=== PATIENT | female | born 2000 | race Caucasian/White ===

== ENCOUNTER 2024-11-20 06:05 | Inpatient (IN) | payer OTHER ==
[~2024-11-20] VITALS: Ht 154.9 cm; Wt 74.4 kg
[~2024-11-20 06:05] MED LIST: CALCIUM CARBONATE 500 MG CHEW PO PRN; LACTATED RINGER'S 1,000 ML IV SCH; MAGNESIUM HYDROXIDE/AL HYDROX 30 ML CUP PO PRN; miSOPROStoL 25 MCG TAB PV SCH
[2024-11-20] MEDS ORDERED: LACTATED RINGER'S 1,000 ML IV PRN (06:30)
[2024-11-20] MEDS ORDERED: OXYTOCIN/0.9 % SODIUM CHLORIDE 30 UNITS/500 ML BAG IV SCH (06:30)
[2024-11-20 06:47] LABS: HEMATOCRIT 36.9 % (35.0-50.0); HEMOGLOBIN 12.9 g/dL (12.0-18.0); MCH 31.7 (27-36); MCHC 35.1 g/dl (30-36); MCV 90.3 fl (81-99); RBC 4.09 M/ul (4.3-5.7); RDW 12.9 (10.5-15.0)
[2024-11-20 07:09] VITALS: BP 118/68
[2024-11-20 07:31] LABS: ABO O; ANTIBODY SCREEN NEGATIVE; RH NEGATIVE
[2024-11-20 07:57] LABS: AMPHETAMINES, URINE NEGATIVE (NEGATIVE); BARBITURATES, URINE NEGATIVE (NEGATIVE); BENZODIAZEPINE, URINE NEGATIVE (NEGATIVE); COCAINE, URINE NEGATIVE (NEGATIVE); ECSTASY, URINE NEGATIVE (NEGATIVE); FENTANYL, URINE NEGATIVE (NEGATIVE); METHADONE, URINE NEGATIVE (NEGATIVE); OPIATES, URINE NEGATIVE (NEGATIVE); OXYCODONE, URINE NEGATIVE (NEGATIVE); PHENCYCLIDINE, URINE NEGATIVE (NEGATIVE)
[2024-11-20 08:50] LABS: BUPRENORPHINE, URINE NEGATIVE (NEGATIVE); CANNABINOID, URINE NEGATIVE (NEGATIVE)
[2024-11-20] MEDS ORDERED: ROPIVACAINE 0.2% 200 ML BAG ONE (15:55)
[2024-11-20] MEDS ORDERED: LACTATED RINGER'S 500 ML IV PRN (17:15)
[2024-11-20] MEDS ORDERED: LACTATED RINGER'S 2,000 ML IV ONE (17:15)
[2024-11-20] MEDS ORDERED: ePHEDrine sulfate 5 MG/ML SYRINGE IV PRN (17:15)
[2024-11-20] MEDS ORDERED: ROPIVACAINE 0.2% 200 ML BAG EPIDURAL SCH (17:15)
[2024-11-20] MEDS ORDERED: dexmedeTOMIDine HCl 200 MCG/2 ML VIAL ONE ×2 (17:24→22:19)
--- NOTE | 2024-11-20 17:36 | PR ---
[facility] [address] [place], [place] [address] Signed Progress Notes IP Datetime Report Generated by [employer]: 11/20/2024 17:36 PROGRESS NOTES: [id number] Impression: Normal Progression of Labor; Reassuring Heart Rate Procedures: Artificial ROM; Sterile Vag Exam Plan: Continue Present Management Informed Consent Obtain: Vaginal Delivery; Risks, Benefits and Alternatives Discussed VITAL SIGNS: [id number] Vital Signs: Reviewed; Within Normal Limits EXAM: [id number] Dilatation: 2.0 Effacement: 90 Station: -2 Contractions: q 2-3 minutes MEMBRANES: [id number] Comments: Care assumed for patient. Doing well. Cat 1 tracing and comfortable w/ epidural. AROM discussed and verbal consent obtained. AROM performed for moderate amount of clear fluid. Continue to monitor FETUS A: [id number] FHR Baseline: 150 Variability: Moderate 6-25bpm Accelerations: 15X15 Decelerations: None FHR Category: Category I Presentation: Vertex Comments on Fetus A: REassuring FETUS B: [id number] Signing Physician: Trenton Alexandre DO Copies: ~ *Electronically Signed* 11/20/24 1732 TRENTON ALEXANDRE (CORY) DO PATIENT NAME: RANDY POLK PROGRESS NOTE DATE OF : 99 PHYSICIAN: TRENTON ALEXANDRE (JD) DO RPT #: [id number] REPORT IS CONFIDENTIAL AND NOT TO BE RELEASED WITHOUT AUTHORIZATION
[2024-11-20] MEDS ORDERED: ondansetron HCL 4 MG/2 ML VIAL IV PRN (22:00)
--- NOTE | 2024-11-20 22:07 | PR ---
[facility] [address] [place], [place] [address] Signed Progress Notes IP Datetime Report Generated by CPN: 11/20/2024 22:07 PROGRESS NOTES: [id number] Impression: Normal Progression of Labor; Reassuring Heart Rate Procedures: Sterile Vag Exam Other Procedures: Exam per RN Plan: Continue Present Management Other Plans: Anesthesia at bedside for epidural bolus Informed Consent Obtain: Vaginal Delivery VITAL SIGNS: [id number] Vital Signs: Reviewed; Within Normal Limits EXAM: [id number] Dilatation: 4.5 Effacement: 90 Station: -1 Contractions: q 2-3 min MEMBRANES: [id number] Comments: Pt seen and evaluated. Tearful w/ contractions. Anesthesia at bedside for epidural bolus. Reviewed labor progress and will continue expectant management. All questions answered. FETUS A: [id number] FHR Baseline: 150 Variability: Moderate 6-25bpm Accelerations: 15X15 Decelerations: None FHR Category: Category I Presentation: Vertex Comments on Fetus A: REassuring FETUS B: [id number] Signing Physician: Trenton Alexandre DO Copies: ~ *Electronically Signed* 11/20/24 9079 TRENTON ALEXANDRE (CORY) DO PATIENT NAME: RANDY POLK PROGRESS NOTE DATE OF : 99 PHYSICIAN: TRENTON ALEXANDRE (JD) DO RPT #: [id number] REPORT IS CONFIDENTIAL AND NOT TO BE RELEASED WITHOUT AUTHORIZATION
[2024-11-20] MEDS ORDERED: LIDOCAINE HCL 2% 5 ML SDV ONE (22:20)
--- NOTE | 2024-11-21 00:35 | PR ---
[facility] [address] [place], [place] [address] Signed Progress Notes IP Datetime Report Generated by [employer]: 11/21/2024 00:34 PROGRESS NOTES: [id number] Impression: Normal Progression of Labor; Reassuring Heart Rate Procedures: Sterile Vag Exam Other Procedures: Exam per RN Plan: Continue Present Management; Anticipate Vaginal Delivery Other Plans: Anesthesia at bedside for epidural bolus Informed Consent Obtain: Vaginal Delivery VITAL SIGNS: [id number] Vital Signs: Reviewed; Within Normal Limits EXAM: [id number] Dilatation: 10.0 Effacement: 90 Station: 0 Contractions: q 1-2 min MEMBRANES: [id number] Comments: Pt complete and c/o urge to push. Good pushing effort. Anticipate soon. Reviewed adequate pelvis and EFW. FETUS A: [id number] FHR Baseline: 150 Variability: Moderate 6-25bpm Accelerations: 15X15 Decelerations: None FHR Category: Category I Presentation: Vertex Comments on Fetus A: REassuring FETUS B: [id number] Signing Physician: Trenton Alexandre DO Copies: ~ *Electronically Signed* 11/21/24 0034 TRENTON ALEXANDRE (CORY) DO PATIENT NAME: RANDY POLK PROGRESS NOTE DATE OF : 99 PHYSICIAN: TRENTON ALEXANDRE (JD) DO RPT #: [id number] REPORT IS CONFIDENTIAL AND NOT TO BE RELEASED WITHOUT AUTHORIZATION
[2024-11-21] MEDS ORDERED: ACETAMINOPHEN 325 MG TAB PO PRN (01:45)
[2024-11-21] MEDS ORDERED: OXYTOCIN/0.9 % SODIUM CHLORIDE 500 ML IV SCH (01:45)
[2024-11-21] MEDS ORDERED: WITCH HAZEL/GLYCERIN 1 EA PAD TOP PRN (01:45)
[2024-11-21] MEDS ORDERED: BENZOCAINE 60 ML AEROSOL TOP PRN (01:45)
[2024-11-21] MEDS ORDERED: HYDROCORTISONE ACETATE 25 MG SUPP PR PRN (01:45)
[2024-11-21] MEDS ORDERED: OXYCODONE/APAP 5/325 TAB PO PRN (01:45)
[2024-11-21] MEDS ORDERED: HYDROCODONE/ACETA 5/325 TAB PO PRN (01:45)
[2024-11-21] MEDS ORDERED: MAGNESIUM HYDROXIDE 30 ML UDC PO PRN (01:45)
[2024-11-21] MEDS ORDERED: IBUPROFEN 600 MG TAB PO PRN (01:45)
[2024-11-21] MEDS ORDERED: CALCIUM CARBONATE 500 MG CHEW PO PRN (01:45)
[2024-11-21] MEDS ORDERED: MAGNESIUM HYDROXIDE/AL HYDROX 30 ML CUP PO PRN (01:45)
[2024-11-21 06:17] LABS: HEMATOCRIT 36.6 % (35.0-50.0); HEMOGLOBIN 12.4 g/dL (12.0-18.0); MCH 30.8 (27-36); MCHC 33.8 g/dl (30-36); MCV 91.1 fl (81-99); PLATELET COUNT 219 K/uL (140-440); RBC 4.02 M/ul (4.3-5.7); RDW 12.9 (10.5-15.0)
[2024-11-21 06:29] LABS: SMEAR REVIEW BLOOD SEE COMMENTS
[2024-11-21] MEDS ORDERED: SENNOSIDES/DOCUSATE 1 EA TAB PO SCH (09:00)
== END 2024-11-22 10:08 | disposition home or self-care (01) | DRG 807 ==
LOC: FBC 06:05
PROVIDERS: Obstetrics & Gynecology; ADMIT Obstetrics & Gynecology; ATTEND Obstetrics & Gynecology
PROC: 3E0R3BZ Introduction of Anesthetic Agent into Spinal Canal, Percutaneous Approach (ICD-10-PCS; principal; 2024-11-20)
PROC: 10E0XZZ Delivery of Products of Conception, External Approach (ICD-10-PCS; principal; 2024-11-20)
PROC: 10907ZC Drainage of Amniotic Fluid, Therapeutic from Products of Conception, Via Natural or Artificial Opening (ICD-10-PCS; principal; 2024-11-20)
PROC: 00HU33Z Insertion of Infusion Device into Spinal Canal, Percutaneous Approach (ICD-10-PCS; principal; 2024-11-20)
DX: O66.0 Obstructed labor due to shoulder dystocia (principal); Z37.0 Single live birth; Z3A.40 40 weeks gestation of pregnancy; O48.0 Post-term pregnancy; O77.0 Labor and delivery complicated by meconium in amniotic fluid; K21.9 Gastro-esophageal reflux disease without esophagitis; O99.62 Diseases of the digestive system complicating childbirth; Z88.1 Allergy status to other antibiotic agents; Z91.09 Other allergy status, other than to drugs and biological substances; Z91.018 Allergy to other foods; Z88.8 Allergy status to other drugs, medicaments and biological substances; Z98.890 Other specified postprocedural states; Z79.899 Other long term (current) drug therapy
CPT/HCPCS: 01960; 36415; 80307; 83030; 85027; 85060; 86850; 86900; 86901; 94799; A9270; J2003; J2405; J2790; J7121